=== PATIENT | female | born 1960 | race Caucasian/White ===

== ENCOUNTER 2024-05-27 12:54 | Outpatient (CLI) | payer BC, SELFPAY ==
--- NOTE | ~2024-05-27 | MR_ITS ---
EXAMINATION: MR knee RT wo con DATE: 05/27/2024 13:29 INDICATION: Right knee pain. TECHNIQUE: Magnetic resonance imaging (MRI) of the right knee was performed without intravenous contr ast. Sequences included axial PD-weighted FS FSE, coronal PD-weighted FSE and PD-weighted FS FSE, sag ittal PD-weighted FSE, and sagittal T2-weighted FS FSE. COMPARISON: None. FINDINGS: Medial compartment: Medial meniscus is normal. The medial compartment cartilage is normal. Lateral compartment: There is an upper surface horizontal tear of body and posterior horn of lateral meniscus. There is ca rtilage surface irregularity of tibial condyle and femoral condyle. Patellofemoral compartment: There is cartilage surface irregularity of patellar medial facet. Trochlear cartilage is normal. Ligaments and tendons: The anterior and posterior cruciate ligaments are normal. Medial collateral ligament and lateral leslie ateral ligament complex are intact. There is mild patellar tendinopathy. Fluid: There is no knee joint effusion. There is edema in the suprapatellar fat pad. IMPRESSION: 1. Tear of lateral meniscus. 2. 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 Reviewed, dictated and finalized at location A. [employer]
== END 2024-05-27 12:55 | disposition home or self-care (01) ==
LOC: GOSHIMG 12:55
PROVIDERS: PCP Family Medicine; Visit Provider Physician Assistant
DX: S83.261A Peripheral tear of lateral meniscus, current injury, right knee, initial encounter (principal); X58.XXXA Exposure to other specified factors, initial encounter; S83.281A Other tear of lateral meniscus, current injury, right knee, initial encounter
CPT/HCPCS: 73721